=== PATIENT | female | born 1990 | race Caucasian/White ===

== ENCOUNTER 2022-08-18 11:22 | Emergency (ER) | payer BC ==
[2022-08-18 11:26] VITALS: TEMP 98; BMI 34.4
[2022-08-18] MEDS ORDERED: SODIUM CHLORIDE 0.9% 500 ML INFUS.BAG IV ONE (13:23)
[2022-08-18] MEDS ORDERED: ONDANSETRON 4 MG/2 ML VIAL IVPUSH ONE (13:23)
[2022-08-18] MEDS ORDERED: ONDANSETRON 4 MG/2 ML VIAL ONE (13:31)
[2022-08-18] MEDS ORDERED: FAMOTIDINE 20 MG/50 ML IVPB 20 MG/50 ML MG IVPB ONE (13:34)
[2022-08-18] MEDS ORDERED: MAG HYDROX/AL HYDROX/SIMETH -MYLANTA- ORAL SUSPENSION PO ONE (13:34)
[2022-08-18] MEDS ORDERED: ACETAMINOPHEN 325 MG TABLET (FP) PO ONE (13:37)
[2022-08-18 13:56] LABS: BASO % 0.4 % (0-2.0); EOS % 0.1 % (0-4.5); HEMATOCRIT 43.5 % (32.4-45.2); HEMOGLOBIN 14.5 GM/dL (10.7-15.3); LYMPH % 10.8 % (8-40); MCH 29.5 pg (25.7-33.7); MCHC 33.4 g/dl (32.0-36.0); MEAN CELL VOLUME 88.3 fl (80-96); MEAN PLT VOLUME 8.9 fl (7.5-11.1); MONO % 2.2 % (3.8-10.2); NEUT % 86.5 % (42.8-82.8); PLATELET COUNT 266 10^3/uL (134-434); RBC 4.92 M/mm3 (3.60-5.2); RDW 13.5 % (11.6-15.6)
[2022-08-18 14:10] LABS: BLOOD UREA NITROGEN 9.6 mg/dL (7-18); CALCIUM 9.2 mg/dL (8.5-10.1)
[2022-08-18 14:13] LABS: CREATININE 0.8 mg/dL (0.55-1.3)
[2022-08-18 14:14] LABS: BILIRUBIN,TOTAL 0.4 mg/dL (0.2-1)
[2022-08-18] MEDS ORDERED: ONDANSETRON *ODT* 4 MG TABLET SL ONE (14:23)
[2022-08-18] MEDS ORDERED: ONDANSETRON *ODT* 4 MG TABLET ONE (14:47)
[2022-08-18] MEDS ORDERED: ACETAMINOPHEN 325 MG TABLET (FP) ONE (14:47)
[2022-08-18] MEDS ORDERED: MAG HYDROX/AL HYDROX/SIMETH 30 ML UNIT-DOSE CUP ONE (14:47)
[2022-08-18] MEDS ORDERED: FAMOTIDINE 10 MG/ML VIAL IVPB ONE (14:48)
[2022-08-18 15:58] VITALS: BP 127/80; PULSE 86; RESP 20
== END 2022-08-18 15:58 | disposition home or self-care (01) ==
LOC: JER 11:22
PROC: 3E033GC Introduction of Other Therapeutic Substance into Peripheral Vein, Percutaneous Approach (ICD-10-PCS; principal; 2022-08-18)
PROC: 3E033GC Introduction of Other Therapeutic Substance into Peripheral Vein, Percutaneous Approach (ICD-10-PCS; 2022-08-18)
DX: K29.00 Acute gastritis without bleeding (principal); R11.2 Nausea with vomiting, unspecified
CPT/HCPCS: 0241U-QW; 36415; 80053; 83690; 84703; 85025; 99284-25; Q0162